=== PATIENT | male | born 1965 | race Caucasian/White ===

== ENCOUNTER 2019-02-01 15:14 | Outpatient (REF) | payer OTHER, SELFPAY ==
[2019-02-01 19:41] LABS: ALT 34 U/L (12-78); AST 61 U/L (15-37); Albumin 3.2 g/dL (3.4-5.0); Alkaline Phosphatase 153 U/L (46-116); Anion Gap 9.9 mmol/L (3-11); BUN 17 mg/dL (7-18); Bilirubin, Total 2.5 mg/dL (0.2-1.0); CO2 26.1 mmol/L (21.0-32.0); CREATININE 1.12 mg/dL (0.70-1.30); Calcium 8.7 mg/dL (8.5-10.1); Chloride 102 mmol/L (98-107); Glucose 109 mg/dL (70-100); Potassium 3.4 mmol/L (3.5-5.1); Sodium 138 mmol/L (136-145); Total Protein 6.9 g/dL (6.4-8.2)
[2019-02-01 19:42] LABS: Mean Corp. HGB Concentration 32.3 g/dL (32.0-36.0); Mean Corpuscular Hemoglobin 28.8 pg (27.0-33.0); Mean Corpuscular Volume 89.3 fL (80-95); Platelet Count 105 x1000/uL (130-400); RBC 3.47 m/cumm (4.50-6.00); RBC Distribution Width 17.6 % (11.8-14.1); White Blood Cell Count 3.84 k/cumm (4.4-10.8)
== END 2019-02-01 15:34 ==
LOC: NCHCN 15:14
PROVIDERS: PCP Physician Assistant; Visit Provider Physician Assistant Medical
DX: I10 Essential (primary) hypertension (principal); K70.30 Alcoholic cirrhosis of liver without ascites; N18.3 Chronic kidney disease, stage 3 (moderate); I85.00 Esophageal varices without bleeding
CPT/HCPCS: 80053; 85027